=== PATIENT | female | born 1955 | race Caucasian/White ===

== ENCOUNTER 2016-04-13 19:48 | Emergency (ER) | payer MEDICARE ==
[2016-04-13 19:59] VITALS: BP 157/75; PULSE 98; TEMP 98.4; BMI 30.8
--- NOTE | 2016-04-13 20:57 | EDPRACDOC ---
- General Information Chief Complaint: Skin Rash (not drug induced) Stated Complaint: HEADACHE REDNESS TO FACE Time Seen by Provider: 04/13/16 20:38 Information Source: Patient Home Medications: Home Medications Butalb/Acetamin/Caffeine [Fioricet] 1 each PO Q4-6H #30 tab 04/13/16 Loratadine [Claritin] 10 mg PO DAILY #30 tab 04/13/16 Prednisone [Deltasone, Orasone] 2 tabs PO DAILY #20 tab 04/13/16 Allergies/Adverse Reactions: Allergies Allergy/AdvReac Type Severity Reaction Status Date / Time Sulfa (Sulfonamide Allergy Unknown Verified 04/13/16 19:56 Antibiotics) Glaucoma Medications Allergy Unknown Uncoded 04/13/16 19:56 - History of Present Illness Onset: 3 days HPI: PT PRESENTS TODAY WITH RED, BURNING, RASH TO FACE X 4 DAYS. DENIES FEVER, CHANGE IN PRODUCTS, PAIN, DIZZINESS. PT STATES [employer]. NO APPARENT DISTRESS. Rash Location: Reports: Face Quality: Reports: Painful, Red Relevant History of: Reports: None Irritability: Moderate Pain Severity: Mild Associated Signs and Symptoms: Reports: Headache ED Past Medical History - History Reviewed Yes Nurses notes reviewed and agree except as marked - Patient Medical History Cardiac History: Reports: Hypertension, Hypercholesterolemia Respiratory History: Reports: COPD Surgical History: Reports: Hysterectomy (partial) - Social Medical History Smoking Status: Heavy tobacco smoker (5 or more cigarettes/day or daily pipe/ cigar) EDM Review of Systems - Review of Systems ROS Negative Except as Marked: Yes All systems reviewed and were negative except as marked Constitutional: No Symptoms Reported Eyes: No Symptoms Reported Ears: No Symptoms Reported Throat: No Symptoms Reported Nose: No Symptoms Reported Respiratory: No Symptoms Reported Cardiovascular: No Symptoms Reported Gastrointestinal: No Symptoms Reported Neurological: Headache Musculoskeletal: No Symptoms Reported Integumentary: Rash - Physical Exam Constitutional: Alert (Awake), No apparent distress Oriented to: Time, Person, Place Last recorded Vital Signs: Last Vital Signs Temp 98.4 F 04/13/16 19:57 Pulse 98 04/13/16 19:57 Resp 20 04/13/16 19:57 BP 157/75 04/13/16 19:57 Pulse Ox 95 04/13/16 19:57 Oxygen Pulse Oxygen Saturation 95 O2 Device Room Air Oxygen Flow Rate Fraction of Inspired Oxygen ( FIO2) - HEENT Head: Other (NOTED RED RASH TO PTS FACE IN MALAR PATTERN; RED, BLANCABLE;) Eye Exam: Normal Oropharynx: Normal Tympanic Membrane: Normal ENT EAC: Normal Nose: No Symptoms Reported Neck: Normal, Denies Pain, Midline - Respiratory/Cardiovascular Respiratory: Normal - CTA Cardiovascular: Normal - GI Palpation: Normal Tenderness: Non tender - Musculoskeletal Back: Normal Extremities: Normal - Integumentary Skin: Rash Lymphatics: Normal - Neurologic Cerebellar: Normal Mood Description: Normal Thought: Coherent Perception: Normal - Additional Information PT ALREADY ON PREDNISONE; NEVER BEEN TESTED FOR SLE, BUT NO OTHER S/S REPORTED. WILL TREAT FOR DERMATITIS AND HAVE PT FOLLOW UP. Decision Time to Discharge: 20:59 - Departure Disposition: Home Condition: Good Final Diagnosis: Rash and nonspecific skin eruption Instructions: Acute Rash (ED) Education/Counseling Given To: Patient Education/Counseling Given Regarding: Diagnosis, Treatment, Follow Up Referrals: None,No Provider [Primary Care Provider] - One Week Duane Blackwood MD [Staff Physician] - One Week Prescriptions: Butalb/Acetamin/Caffeine [Fioricet] 1 each PO Q4-6H #30 tab Loratadine [Claritin] 10 mg PO DAILY #30 tab Prednisone [Deltasone, Orasone] 2 tabs PO DAILY #20 tab Additional Instructions: TAKE OTHER PAIN MEDICATION PRESCRIBED. IF SYMPTOMS PERSIST, FOLLOW UP WITH PCP/DERM FOR POSSIBLE NEED OF BIOPSY.
[2016-04-13] MEDS ORDERED: Fioricet Tablet PO ONE (21:01)
== END 2016-04-13 21:17 | disposition home or self-care (01) ==
LOC: EDMC 19:48
DX: R21 Rash and other nonspecific skin eruption (principal)
CPT/HCPCS: 99282; A9270; J3490